=== PATIENT | female | born 1935 | race Caucasian/White ===

== ENCOUNTER 2018-07-07 18:59 | Inpatient (IN) | payer OTHER ==
[~2018-07-07] VITALS: Ht 157.5 cm; Wt 60.0 kg
[2018-07-07 19:07] VITALS: Ht 157.5 cm; Wt 60.0 kg
[2018-07-07 19:50] LABS: BASOPHIL % 0.5 % (0-2); PLATELET COUNT 247 x10^3mcL (130-400)
[2018-07-07 20:12] LABS: FREE T4 0.92 ng/dL (0.76-1.46); FREE THYROXINE INDEX 2.8 ug/dL (1.4-4.5); T4(THYROXINE) 8.6 ug/dL (4.7-13.3)
[2018-07-07 20:14] LABS: CALCIUM 9.2 mg/dL (8.5-10.1); CARBON DIOXIDE 25.6 mmol/L (21-32); CHLORIDE SERUM 105 mmol/L (98-107); CREATININE SERUM 0.7 mg/dL (0.6-1.0); GLUCOSE SERUM 96 mg/dL (74-106); SODIUM SERUM 142 mmol/L (136-145)
[2018-07-07 20:19] LABS: T3 TOTAL 1.22 ng/mL
[2018-07-07 20:20] LABS: ALBUMIN 3.7 g/dL (3.4-5.0); ALKALINE PHOSPHATASE 113 U/L (46-116); ALT/SGPT 12 U/L (14-59); AST/SGOT 16 U/L (15-37); BILIRUBIN TOTAL 0.24 mg/dL (0.20-1.00); CHOLESTEROL 167 mg/dL (<200); CHOLESTEROL/HDL RATIO 2.6; HDL CHOLESTEROL 65 mg/dL (40-60); LIPASE 375 IU/L (73-393); TOTAL PROTEIN, SERUM 7.4 g/dL (6.4-8.2); TRIGLYCERIDES 144 mg/dL (<150)
[2018-07-07 21:23] LABS: UA SPECIFIC GRAVITY <=1.005 (1.005-1.035); microscopic required? YES; urine erythrocyte TRACE (NEGATIVE)
[2018-07-07] MEDS ORDERED: TRAMADOL HCL50 MG PO (22:59)
[2018-07-07] MEDS ORDERED: VITAMIN D32000 I2 PO (23:00)
[2018-07-07] MEDS ORDERED: GOOD SENSE OMEP20 MG PO (23:00)
[2018-07-07] MEDS ORDERED: XANAX0.5 MG PO (23:00)
[2018-07-07] MEDS ORDERED: CRESTOR10 M1 PO (23:01)
[2018-07-07 23:50] LABS: MAGNESIUM 2.3 mg/dL (1.8-2.4); PHOSPHOROUS 3.9 mg/dL (2.5-4.9)
[2018-07-08 02:09] VITALS: BP 148/59
[2018-07-08 04:42] LABS: BASOPHIL % 0.5 % (0-2); PLATELET COUNT 222 x10^3mcL (130-400); RED CELL DISTRIBUTION WIDTH 18.1 % (11.5-14.5)
[2018-07-08 04:49] LABS: CALCIUM 8.6 mg/dL (8.5-10.1); CARBON DIOXIDE 26.7 mmol/L (21-32); CHLORIDE SERUM 106 mmol/L (98-107); CREATININE SERUM 0.6 mg/dL (0.6-1.0); GLUCOSE SERUM 99 mg/dL (74-106); MAGNESIUM 2.1 mg/dL (1.8-2.4); PHOSPHOROUS 3.7 mg/dL (2.5-4.9); POTASSIUM SERUM 3.5 mmol/L (3.5-5.1); SODIUM SERUM 141 mmol/L (136-145)
[2018-07-08 05:45] VITALS: BP 116/53
[2018-07-08 09:00] VITALS: BP 133/54
[2018-07-08 13:30] VITALS: BP 121/52
[2018-07-08 17:24] VITALS: BP 135/54
[2018-07-08 19:30] VITALS: BP 123/54
[2018-07-09 05:00] VITALS: BP 124/62
[2018-07-09 06:26] LABS: BASOPHIL % 0.6 % (0-2); PLATELET COUNT 216 x10^3mcL (130-400)
[2018-07-09 06:29] LABS: CALCIUM 8.6 mg/dL (8.5-10.1); CARBON DIOXIDE 27.8 mmol/L (21-32); CHLORIDE SERUM 108 mmol/L (98-107); CREATININE SERUM 0.5 mg/dL (0.6-1.0); GLUCOSE SERUM 92 mg/dL (74-106); POTASSIUM SERUM 3.5 mmol/L (3.5-5.1); SODIUM SERUM 143 mmol/L (136-145)
[2018-07-09 06:52] LABS: RED CELL DISTRIBUTION WIDTH 18.1 % (11.5-14.5)
[2018-07-09 09:31] VITALS: BP 138/63
[2018-07-09 16:46] VITALS: BP 116/47
[2018-07-09 20:40] VITALS: BP 129/40
[2018-07-10 05:42] VITALS: BP 118/50
[2018-07-10 07:56] LABS: BASOPHIL % 0.7 % (0-2); PLATELET COUNT 218 x10^3mcL (130-400)
[2018-07-10 08:06] LABS: RED CELL DISTRIBUTION WIDTH 18.5 % (11.5-14.5)
[2018-07-10 08:07] LABS: CALCIUM 8.6 mg/dL (8.5-10.1); CARBON DIOXIDE 30.5 mmol/L (21-32); CHLORIDE SERUM 108 mmol/L (98-107); CREATININE SERUM 0.6 mg/dL (0.6-1.0); GLUCOSE SERUM 94 mg/dL (74-106); POTASSIUM SERUM 4.7 mmol/L (3.5-5.1); SODIUM SERUM 143 mmol/L (136-145)
[2018-07-10 11:58] VITALS: BP 118/50
== END 2018-07-10 13:26 | disposition home or self-care (01) | DRG 205 ==
LOC: ED 18:59 → DU 23:24
PROVIDERS: Specialist; ADMIT General Practice
DX: M94.0 Chondrocostal junction syndrome [Tietze] (principal); N17.0 Acute kidney failure with tubular necrosis; K21.9 Gastro-esophageal reflux disease without esophagitis; K44.9 Diaphragmatic hernia without obstruction or gangrene; E02 Subclinical iodine-deficiency hypothyroidism; E78.5 Hyperlipidemia, unspecified; D50.9 Iron deficiency anemia, unspecified; F41.9 Anxiety disorder, unspecified; R73.03 Prediabetes; Z66 Do not resuscitate; Z68.34 Body mass index [BMI] 34.0-34.9, adult; Z96.653 Presence of artificial knee joint, bilateral; Z86.73 Personal history of transient ischemic attack (TIA), and cerebral infarction without residual deficits
CPT/HCPCS: 78598; 83880; 84439; 85378; A9500; A9540; J1650; J1885; J2270; J2785; J7030; Q0092; Q9967